=== PATIENT | female | born 1975 | race Caucasian/White ===

== ENCOUNTER 2016-12-21 18:01 | Emergency (ER) | payer SELFPAY ==
[~2016-12-21] VITALS: Ht 170.2 cm; Wt 72.6 kg
[2016-12-21 18:50] VITALS: BP 114/67
--- NOTE | 2016-12-21 21:42 | NUR ---
PATIENT LEFT WITHOUT BEING SEEN BY DR. COOK. NO FURTHER CARE PROVIDED FOR PATIENT.
== END 2016-12-21 21:42 | disposition left against medical advice (07) ==
LOC: MED 18:01
DX: R20.0 Anesthesia of skin (principal); Z53.21 Procedure and treatment not carried out due to patient leaving prior to being seen by health care provider